=== PATIENT | male | born 2000 | race Caucasian/White ===

== ENCOUNTER 2024-04-15 15:27 | Emergency (ER) | payer SELFPAY ==
[2024-04-15] MEDS ORDERED: Ibuprofen 800 MG TAB ONE (15:52)
== END 2024-04-15 15:57 | disposition home or self-care (01) ==
LOC: NAV ERS 15:27
DX: S01.511A Laceration without foreign body of lip, initial encounter (principal); W22.8XXA Striking against or struck by other objects, initial encounter; Y99.0 Civilian activity done for income or pay
CPT/HCPCS: 99282